=== PATIENT | female | born 1940 | race Caucasian/White ===

== ENCOUNTER 2021-06-08 09:23 | Emergency (ER) | payer MEDICARE ==
[2021-06-08 10:29] LABS: HEMOGLOBIN 15.1 gm/dl (12.3-15.3); RED BLOOD COUNT 5.28 M/UL (4.00-5.10); WHITE BLOOD COUNT 6.6 K/UL (4.5-11.0)
[2021-06-08 11:07] LABS: BUN/CREATININE RATIO 18 (0-10)
[2021-06-08] MEDS ORDERED: ELIQUIS5 MG PO (15:23)
== END 2021-06-08 17:00 | disposition home or self-care (01) ==
LOC: ER1 09:23
PROVIDERS: Nurse Practitioner
DX: I48.91 Unspecified atrial fibrillation (principal); R91.1 Solitary pulmonary nodule; E78.5 Hyperlipidemia, unspecified; I10 Essential (primary) hypertension
CPT/HCPCS: 71045; 80053; 82550; 82553; 83735; 83874; 84439; 84443; 84484; 85025; 85379; 85610; 85730; 93005; 93242; 99285; Q9967

== ENCOUNTER → 2021-07-18 | Outpatient (CLI) | payer MEDICARE ==
[~2021-07-18] MED LIST: ELIQUIS5 MG PO
== END ==
LOC: HEART 5 07-08 10:00
DX: I48.91 Unspecified atrial fibrillation (principal); R07.9 Chest pain, unspecified; R00.2 Palpitations
CPT/HCPCS: 78452; 93306; A9502; J2785